=== PATIENT | male | born 1960 | race Caucasian/White ===

== ENCOUNTER 2022-06-30 10:30 | Emergency (ER) | payer MEDICAID ==
[2022-06-30] MEDS ORDERED: Sodium Chloride 0.9% 10 ML Syringe FLUSH PRN (10:55)
[2022-06-30] MEDS ORDERED: Sodium Chloride 0.9% 1,000 ML IV STA (10:55)
== END 2022-06-30 13:29 | disposition home or self-care (01) ==
LOC: JD.ED 10:30
DX: R42 Dizziness and giddiness (principal); Z20.822 Contact with and (suspected) exposure to COVID-19
CPT/HCPCS: 36415; 80053; 83735; 85025; 87635; 93005; 96360; 99284; J3490; J7030; 93010; 99283; U0002